=== PATIENT | male | born 1965 | race Caucasian/White ===

== ENCOUNTER 2020-11-24 10:13 | Observation (INO) ==
[2020-11-24] MEDS ORDERED: 0.9 % Sodium Chloride 1,000 ML IVC ONE (11:26)
[2020-11-24] MEDS ORDERED: Isovue-370 500 ML BOTTLE IVP ONE (11:26)
[2020-11-24 11:54] LABS: Basophils # 0.1 K/mcL (0.0-0.2); Basophils % 0.5 %; Eosinophils % 0.1 %; Hematocrit 48.2 % (37.5-50.1); Hemoglobin 15.5 g/dL (12.9-16.9); Immature Granulocytes % 0.8 % (0-4); Lymphocytes # 2.3 K/mcL (0.6-4.6); Lymphocytes % 23.2 %; Mean Corpuscular HGB Conc 32.2 g/dL (31.6-35.5); Mean Corpuscular Hemoglobin 31.2 pg (28.0-33.3); Monocytes # 0.8 K/mcL (0.0-1.3); Monocytes % 8.3 %; Neutrophils # 6.7 K/mcL (1.6-8.9); Platelet Count 244 K/mcL (140-400); Red Blood Count 4.97 M/mcL (4.19-5.50); Red Cell Distribution Width 11.6 % (11.5-14.5); Segmented Neutrophils % 67.1 %
[2020-11-24 12:07] LABS: Alanine Aminotransferase 15 Units/L (7-52); Albumin 4.3 g/dL (3.5-5.7); Albumin/Globulin Ratio 1.3 (1.1-2.2); Alkaline Phosphatase 95 Units/L (34-104); Aspartate Amino Transferase 15 Units/L (13-39); BUN/Creatinine Ratio 17 (6-26); Bilirubin,Total 0.4 mg/dL (0.3-1.0); Blood Urea Nitrogen 18 mg/dL (6-20); Calcium 9.6 mg/dL (8.6-10.3); Carbon Dioxide 25 mEq/L (23-29); Chloride 98 mEq/L (98-107); Globulin 3.2 g/dL (2.4-3.5); Glucose 476 mg/dL (70-105); Magnesium 1.9 mg/dL (1.6-2.6); Osmolality,Calculated 297 (280-300); Potassium 4.6 mEq/L (3.5-5.1); Sodium 132 mEq/L (136-145); Total Protein 7.5 g/dL (6.4-8.9); Troponin I 0.03 ng/mL (< 0.04); eGFR For African Americans > 60 (> 60); eGFR For Non-African Americans > 60 (> 60)
[2020-11-24 16:25] LABS: Adenovirus Not Detected (Not Detect); Bordetella Pertussis Not Detected (Not Detect); Chlamydophila pneumoniae Not Detected (Not Detect); Coronavirus 229E Not Detected (Not Detect); Coronavirus HKU1 Not Detected (Not Detect); Coronavirus NL63 Not Detected (Not Detect); Coronavirus OC43 Not Detected (Not Detect); Human Metapneumovirus Not Detected (Not Detect); Human Rhinovirus/Enterovirus Not Detected (Not Detect); Influenza A Subtype 2009 H1 Not Detected (Not Detect); Influenza B Not Detected (Not Detect); Mycoplasma pneumoniae Not Detected (Not Detect); Parainfluenza Virus 1 Not Detected (Not Detect); Parainfluenza Virus 2 Not Detected (Not Detect); Parainfluenza Virus 3 Not Detected (Not Detect); Parainfluenza Virus 4 Not Detected (Not Detect); Respiratory Syncytial Virus Not Detected (Not Detect); SARS-CoV-2 Not Detected (Not Detect)
[2020-11-24] MEDS ORDERED: Naloxone 0.4 MG/ML INJ IVP PRN (16:39)
[2020-11-24] MEDS ORDERED: *HR* Dextrose 50 % in Water (Vial) 50 ML VIAL IVP PRN (16:42)
[2020-11-24] MEDS ORDERED: D5% in Water 1,000 ML IVC PRN (16:42)
[2020-11-24] MEDS ORDERED: Dextrose Gel 15 GM/37.5 ML TUBE PO PRN ×2 (16:42)
[2020-11-24] MEDS: Aspirin 81 MG TAB.CHEW PO SCH (17:27)
[2020-11-24] MEDS: Insulin LISPRO 300 UNITS/3 ML VIAL SUBQ SCH ×2 (17:27→21:04)
[2020-11-24] MEDS: Folic Acid 1 MG TABLET PO SCH (21:02)
[2020-11-24] MEDS: tiZANidine 4 MG TABLET PO SCH (21:03)
[2020-11-24] MEDS: Divalproex (12 HR) 500 MG TABLET PO SCH (21:03)
[2020-11-25 01:58] LABS: Hematocrit 42.9 % (37.5-50.1); Mean Corpuscular HGB Conc 32.6 g/dL (31.6-35.5); Mean Corpuscular Hemoglobin 31.5 pg (28.0-33.3); Mean Corpuscular Volume 96.6 fL (83.0-100.0); Mean Platelet Volume 9.7 fL (9.4-12.4); Platelet Count 235 K/mcL (140-400); Red Blood Count 4.44 M/mcL (4.19-5.50); Red Cell Distribution Width 11.8 % (11.5-14.5); White Blood Count 9.3 K/mcL (4.3-11.1)
[2020-11-25 02:16] LABS: Estimated Average Glucose 246 mg/dl; Hemoglobin A1C 10.2 %
[2020-11-25 02:24] LABS: BUN/Creatinine Ratio 17 (6-26); Blood Urea Nitrogen 17 mg/dL (6-20); Calcium 8.5 mg/dL (8.6-10.3); Carbon Dioxide 25 mEq/L (23-29); Chloride 103 mEq/L (98-107); Chol/HDL Ratio 5.6 (0-4.9); Cholesterol 161 mg/dL (< 200); Glucose 240 mg/dL (70-105); HDL Cholesterol 29 mg/dL (40-59); LDL Cholesterol,Calculated 63 mg/dL (< 100); Osmolality,Calculated 293 (280-300); Potassium 4.2 mEq/L (3.5-5.1); Sodium 137 mEq/L (136-145); Triglycerides 345 mg/dL (< 150); eGFR For African Americans > 60 (> 60); eGFR For Non-African Americans > 60 (> 60)
[2020-11-25] MEDS: Insulin LISPRO 300 UNITS/3 ML VIAL SUBQ SCH ×4 (09:11→20:03)
[2020-11-25] MEDS: tiZANidine 4 MG TABLET PO SCH ×2 (09:11→20:04)
[2020-11-25] MEDS: Aspirin 81 MG TAB.CHEW PO SCH (09:11)
[2020-11-25] MEDS: Folic Acid 1 MG TABLET PO SCH ×2 (09:12→20:03)
[2020-11-25] MEDS: rOPINIRole 1 MG TABLET PO SCH (09:13)
[2020-11-25] MEDS: Divalproex (12 HR) 500 MG TABLET PO SCH (20:02)
[2020-11-26] MEDS: tiZANidine 4 MG TABLET PO SCH ×2 (09:06→20:49)
[2020-11-26] MEDS: Folic Acid 1 MG TABLET PO SCH ×2 (09:06→20:48)
[2020-11-26] MEDS: Aspirin 81 MG TAB.CHEW PO SCH (09:06)
[2020-11-26] MEDS: Insulin LISPRO 300 UNITS/3 ML VIAL SUBQ SCH ×4 (09:07→20:50)
[2020-11-26] MEDS: rOPINIRole 1 MG TABLET PO SCH (09:07)
[2020-11-26] MEDS: Divalproex (12 HR) 500 MG TABLET PO SCH (20:48)
[2020-11-27] MEDS: *HR* Enoxaparin 40 MG/0.4 ML SYRINGE SQ SCH (04:55)
[2020-11-27] MEDS: Aspirin 81 MG TAB.CHEW PO SCH (07:47)
[2020-11-27] MEDS: Folic Acid 1 MG TABLET PO SCH ×2 (07:47→20:01)
[2020-11-27] MEDS: rOPINIRole 1 MG TABLET PO SCH (07:48)
[2020-11-27] MEDS: tiZANidine 4 MG TABLET PO SCH ×2 (07:49→19:59)
[2020-11-27] MEDS: Insulin LISPRO 300 UNITS/3 ML VIAL SUBQ SCH ×3 (07:50→17:20)
[2020-11-27 13:36] LABS: Bacteria,Urine Few per hpf (None-Few); Bilirubin,Urine Negative (Negative); Blood,Urine Negative (Negative); Clarity,Urine Clear (Clear); Color,Urine Light-Yellow (Yellow); Glucose,Urine (UA) >=1000 mg/dL (Normal); Ketones,Urine Trace mg/dL (Negative); Leukocyte Esterase,Urine Negative (Negative); Nitrite,Urine Negative (Negative); Protein,Urine Negative (Neg-Trace); RBC,Urine 0-3 per hpf (0-3); Specific Gravity,Urine 1.021 (1.010-1.025); Urobilinogen,Urine Normal (Normal); WBC,Urine 0-3 per hpf (0-3)
[2020-11-27] MEDS: Divalproex (12 HR) 500 MG TABLET PO SCH (20:00)
[2020-11-27] MEDS: Insulin DETEMIR 100 UNIT/ML X5UNITS SUBQ SCH (20:11)
[2020-11-27] MEDS ORDERED: Insulin LISPRO 300 UNITS/3 ML VIAL SUBQ SCH (21:00)
[2020-11-28] MEDS: *HR* Enoxaparin 40 MG/0.4 ML SYRINGE SQ SCH (05:18)
[2020-11-28] MEDS: Insulin LISPRO 300 UNITS/3 ML VIAL SUBQ SCH ×4 (08:52→21:00)
[2020-11-28] MEDS: tiZANidine 4 MG TABLET PO SCH ×2 (08:56→20:57)
[2020-11-28] MEDS: Aspirin 81 MG TAB.CHEW PO SCH (08:56)
[2020-11-28] MEDS: Folic Acid 1 MG TABLET PO SCH ×2 (08:56→20:57)
[2020-11-28] MEDS: rOPINIRole 1 MG TABLET PO SCH (08:57)
[2020-11-28] MEDS: Divalproex (12 HR) 500 MG TABLET PO SCH (20:57)
[2020-11-28] MEDS: Insulin DETEMIR 100 UNIT/ML X5UNITS SUBQ SCH (20:59)
[2020-11-29] MEDS: *HR* Enoxaparin 40 MG/0.4 ML SYRINGE SQ SCH (06:00)
[2020-11-29] MEDS: Insulin LISPRO 300 UNITS/3 ML VIAL SUBQ SCH ×4 (08:33→21:47)
[2020-11-29] MEDS: Aspirin 81 MG TAB.CHEW PO SCH (08:33)
[2020-11-29] MEDS: Folic Acid 1 MG TABLET PO SCH ×2 (08:34→21:43)
[2020-11-29] MEDS: rOPINIRole 1 MG TABLET PO SCH (08:35)
[2020-11-29] MEDS: tiZANidine 4 MG TABLET PO SCH ×2 (08:35→21:44)
[2020-11-29] MEDS ORDERED: Insulin DETEMIR 100 UNIT/ML X5UNITS SUBQ SCH (21:00)
[2020-11-29] MEDS: Divalproex (12 HR) 500 MG TABLET PO SCH (21:46)
[2020-11-30] MEDS: *HR* Enoxaparin 40 MG/0.4 ML SYRINGE SQ SCH (05:36)
[2020-11-30] MEDS: tiZANidine 4 MG TABLET PO SCH ×2 (08:38→20:23)
[2020-11-30] MEDS: Folic Acid 1 MG TABLET PO SCH ×2 (08:39→20:25)
[2020-11-30] MEDS: Aspirin 81 MG TAB.CHEW PO SCH (08:39)
[2020-11-30] MEDS: Insulin LISPRO 300 UNITS/3 ML VIAL SUBQ SCH ×6 (08:40→20:33)
[2020-11-30] MEDS: rOPINIRole 1 MG TABLET PO SCH (08:40)
[2020-11-30] MEDS: Insulin DETEMIR 100 UNIT/ML X5UNITS SUBQ SCH ×2 (08:42→20:33)
[2020-11-30] MEDS: Divalproex (12 HR) 500 MG TABLET PO SCH (20:23)
[2020-12-01] MEDS: *HR* Enoxaparin 40 MG/0.4 ML SYRINGE SQ SCH (05:31)
[2020-12-01 07:55] LABS: Basophils # 0.1 K/mcL (0.0-0.2); Basophils % 0.9 %; Eosinophils # 0.1 K/mcL (0.0-0.6); Hematocrit 44.1 % (37.5-50.1); Hemoglobin 14.6 g/dL (12.9-16.9); Immature Granulocytes % 1.3 % (0-4); Lymphocytes # 2.8 K/mcL (0.6-4.6); Lymphocytes % 36.8 %; Mean Corpuscular HGB Conc 33.1 g/dL (31.6-35.5); Mean Corpuscular Hemoglobin 31.5 pg (28.0-33.3); Monocytes # 0.7 K/mcL (0.0-1.3); Monocytes % 9.2 %; Neutrophils # 3.9 K/mcL (1.6-8.9); Platelet Count 208 K/mcL (140-400); Red Blood Count 4.64 M/mcL (4.19-5.50); Red Cell Distribution Width 11.6 % (11.5-14.5); Segmented Neutrophils % 50.8 %; White Blood Count 7.6 K/mcL (4.3-11.1)
[2020-12-01 08:08] LABS: BUN/Creatinine Ratio 19 (6-26); Blood Urea Nitrogen 16 mg/dL (6-20); Calcium 8.4 mg/dL (8.6-10.3); Carbon Dioxide 28 mEq/L (23-29); Chloride 101 mEq/L (98-107); Glucose 234 mg/dL (70-105); Magnesium 1.9 mg/dL (1.6-2.6); Osmolality,Calculated 289 (280-300); Phosphorous 3.7 mg/dL (2.7-4.5); Potassium 4.3 mEq/L (3.5-5.1); Sodium 135 mEq/L (136-145); eGFR For African Americans > 60 (> 60); eGFR For Non-African Americans > 60 (> 60)
[2020-12-01] MEDS: rOPINIRole 1 MG TABLET PO SCH (08:54)
[2020-12-01] MEDS: Aspirin 81 MG TAB.CHEW PO SCH (08:55)
[2020-12-01] MEDS: Folic Acid 1 MG TABLET PO SCH (08:56)
[2020-12-01] MEDS: tiZANidine 4 MG TABLET PO SCH (08:57)
[2020-12-01] MEDS: Insulin DETEMIR 100 UNIT/ML X5UNITS SUBQ SCH (08:59)
[2020-12-01] MEDS: Insulin LISPRO 300 UNITS/3 ML VIAL SUBQ SCH ×4 (09:00→12:24)
[2020-12-01 15:34] VITALS: BP 130/79; PULSE 83; TEMP 98.1; O2SAT 94
[2020-12-01 17:17] LABS: Adenovirus Not Detected (Not Detect); Bordetella Pertussis Not Detected (Not Detect); Chlamydophila pneumoniae Not Detected (Not Detect); Coronavirus 229E Not Detected (Not Detect); Coronavirus HKU1 Not Detected (Not Detect); Coronavirus NL63 Not Detected (Not Detect); Coronavirus OC43 Not Detected (Not Detect); Human Metapneumovirus Not Detected (Not Detect); Human Rhinovirus/Enterovirus Not Detected (Not Detect); Influenza A Subtype 2009 H1 Not Detected (Not Detect); Influenza B Not Detected (Not Detect); Mycoplasma pneumoniae Not Detected (Not Detect); Parainfluenza Virus 1 Not Detected (Not Detect); Parainfluenza Virus 2 Not Detected (Not Detect); Parainfluenza Virus 3 Not Detected (Not Detect); Parainfluenza Virus 4 Not Detected (Not Detect); Respiratory Syncytial Virus Not Detected (Not Detect); SARS-CoV-2 Not Detected (Not Detect)
== END 2020-12-01 17:55 | disposition critical access hospital (66) ==
LOC: EMEROOARM 10:13 → 3BNU 10:13 → SUATTDRO 15:58 → 3BNU 16:53
PROVIDERS: ADMIT Pharmacist; ATTEND Internal Medicine